=== PATIENT | female | born 1995 | race African-American/Black ===

== ENCOUNTER 2021-03-30 13:52 | Inpatient (IN) | payer MEDICAID, OTHER ==
[~2021-03-30] VITALS: Ht 160 cm; Wt 58.7 kg
[2021-03-30 17:14] LABS: ANION GAP 9 mmol/L (8-16); BASOPHILS % (AUTO) 0.4 % (0.0-2.0); CALCIUM, TOTAL 8.9 mg/dL (8.8-10.5); CARBON DIOXIDE 26 mmol/L (22-29); CHLORIDE 105 mmol/L (98-107); CREATININE 0.72 mg/dL (0.60-1.30); EOSINOPHILS % (AUTO) 0.6 % (1.0-6.0); GLOMERULAR FILTR. RATE CALC > 60 mL/min (>60); GLUCOSE,RANDOM 87 mg/dL (70-110); HEMATOCRIT 42.1 % (36-46); HEMOGLOBIN 14.4 g/dL (12.0-16.0); LYMPHOCYTES # (AUTO) 2.3 K/uL (1.0-4.8); LYMPHOCYTES % (AUTO) 27.1 % (22.0-44.0); MEAN CORPUSCULAR HEMOGLOBIN 30.4 pg (26.0-34.0); MEAN CORPUSCULAR HGB CONC 34.1 G/dL (31.0-37.0); MEAN CORPUSCULAR VOLUME 89 fL (80-100); MONOCYTES # (AUTO) 0.5 K/uL (0.1-1.0); MONOCYTES % (AUTO) 5.6 % (2.0-9.0); NEUTROPHILS # (AUTO) 5.6 K/uL (1.8-7.7); NEUTROPHILS % (AUTO) 66.3 % (40.0-70.0); PLATELET COUNT (AUTO) 167 K/uL (150-450); POTASSIUM 3.7 mmol/L (3.5-5.1); RED BLOOD CELL COUNT(AUTO) 4.73 MIL/uL (4.00-5.20); SODIUM SERUM 140 mmol/L (136-145); UREA NITROGEN, BLOOD 10 mg/dL (7-18)
[2021-03-30 17:30] LABS: ALANINE AMINOTRANSFERASE 14 U/L (12-78); ALBUMIN 4.1 g/dL (3.4-5.0); ALKALINE PHOSPHATASE 45 U/L (46-116); ASPARTATE AMINOTRANSFERASE 15 U/L (15-37); HCG,QUANTITATIVE < 1 mIU/mL (0-6)
[2021-03-30 18:36] LABS: COVID AG,FIA SOURCE NASOPHARYNGEAL
[2021-03-30] MEDS ORDERED: ZOLPIDEM TARTRATE 10 MG TABLET PO PRN ×2 (19:00→23:45)
[2021-03-30] MEDS ORDERED: LORazepam 2 MG TABLET PO PRN ×2 (19:00→23:45)
[2021-03-30] MEDS ORDERED: OLANZapine 5 MG RAPDIS TABLET PO PRN ×2 (19:00→23:45)
[2021-03-31] MEDS ORDERED: INFLUENZA VIRUS VACCINE QVS 2021-22 (6MO+)/PF 60 MCG/0.5 ML SYRINGE IM. ONE (01:45)
[2021-03-31 02:47] VITALS: BP 105/65
[2021-03-31 08:21] VITALS: BP 119/74
[2021-03-31 16:24] VITALS: BP 109/79
[2021-04-01 00:50] VITALS: BP 126/74
[2021-04-01 08:28] VITALS: BP 111/66
[2021-04-01] MEDS ORDERED: PROMETHAZINE HCL 25 MG TABLET PO PRN (15:45)
[2021-04-01] MEDS ORDERED: GuaiFENesin/D-METHORPHAN [SUGAR-FREE] 200-20MG/10 ML SYRUP UDCUP PO PRN (15:45)
[2021-04-01] MEDS ORDERED: TUBERCULIN, PURIFIED PROTEIN DERIVATIVE 5 TU/0.1 ML SYRINGE ID ONE (15:45)
[2021-04-01] MEDS ORDERED: HydrOXYzine PAMOATE 50 MG CAPSULE PO PRN (15:45)
[2021-04-01] MEDS ORDERED: MAG HYDROX/AL HYDROX/SIMETH ES 30 ML SUSPENSION UDCUP PO PRN (15:45)
[2021-04-01] MEDS ORDERED: ACETAMINOPHEN 325 MG TABLET PO PRN (15:45)
[2021-04-01] MEDS ORDERED: LOPERAMIDE HCL 2 MG CAPSULE PO PRN (15:45)
[2021-04-01] MEDS ORDERED: MAGNESIUM HYDROXIDE SUSPENSION 30 ML UDCUP PO PRN (15:45)
[2021-04-01] MEDS ORDERED: PROZ20 PO (15:54)
[2021-04-01] MEDS ORDERED: MELA5TAB40 PO (15:54)
[2021-04-01] MEDS ORDERED: OMEG-135 PO (15:54)
[2021-04-01 16:24] VITALS: BP 100/66
[2021-04-01] MEDS: THIAMINE 100 MG TABLET PO SCH (17:04)
[2021-04-01] MEDS ORDERED: MELATONIN 5 MG TABLET PO SCH (21:00)
[2021-04-02 00:45] VITALS: BP 102/67
[2021-04-02 07:36] LABS: HEMOGLOBIN A1C 5.7 % (3.8-5.6)
[2021-04-02 07:50] LABS: CHOL/HDL RATIO 3.4 (3.9-5.7); FREE T4 (FREE THYROXINE) 1.12 ng/dL (0.76-1.46); THYROID STIMULATING HORMONE 1.52 uIU/mL (0.36-3.74)
[2021-04-02 08:40] VITALS: BP 105/65
[2021-04-02] MEDS ORDERED: FOLIC ACID 1 MG TABLET PO SCH (09:00)
[2021-04-02] MEDS ORDERED: FLUoxetine HCL 20 MG CAPSULE PO SCH (09:00)
[2021-04-02] MEDS ORDERED: OMEGA-3/DHA/EPA/FISH OIL 1,000 MG CAPSULE PO SCH (09:00)
[2021-04-02] MEDS ORDERED: MULTIVITAMINS WITH MINERALS, THERAPEUTIC TABLET PO SCH (09:00)
[2021-04-02] MEDS: THIAMINE 100 MG TABLET PO SCH (09:19)
== END 2021-04-02 10:45 | disposition home or self-care (01) | DRG 754 ==
LOC: EMS 13:57 → B2S 20:00 → EMS 23:40
PROVIDERS: ADMIT Psychiatry & Neurology Psychiatry; ATTEND Psychiatry & Neurology Psychiatry
DX: F32.9 Major depressive disorder, single episode, unspecified (principal); Z91.14 Patient's other noncompliance with medication regimen; Z20.822 Contact with and (suspected) exposure to COVID-19; Z55.9 Problems related to education and literacy, unspecified; Z59.9 Problem related to housing and economic circumstances, unspecified; Z63.9 Problem related to primary support group, unspecified; Z65.3 Problems related to other legal circumstances
CPT/HCPCS: 80053; 80061; 83036; 84439; 84443; 84702; 85025; 86592; 99285; G0480; Q9967

== ENCOUNTER 2021-12-14 10:55 | Emergency (ER) | payer MEDICAID, OTHER ==
[~2021-12-14] VITALS: Ht 160 cm; Wt 56.8 kg
[~2021-12-14 10:55] MED LIST: MELA5TAB40 PO; OMEG-135 PO; PROZ20 PO
[2021-12-14] MEDS ORDERED: DOXY-354 PO ×2 (14:33→15:04)
[2021-12-14] MEDS ORDERED: CefTRIAXone SODIUM 1 GM/VIAL IM ONE (14:45)
[2021-12-14] MEDS ORDERED: LIDOCAINE/PF 1% 2 ML VIAL IM ONE (14:45)
[2021-12-14 15:07] VITALS: BP 105/76
== END 2021-12-14 15:08 | disposition home or self-care (01) ==
LOC: EMS 10:55
DX: Z20.2 Contact with and (suspected) exposure to infections with a predominantly sexual mode of transmission (principal); F12.90 Cannabis use, unspecified, uncomplicated
CPT/HCPCS: 99283; 81025; 96372; J0696; J3490

== ENCOUNTER 2022-01-04 09:02 | Emergency (ER) | payer OTHER ==
[~2022-01-04] VITALS: Ht 165.1 cm; Wt 88.6 kg
[~2022-01-04 09:02] MED LIST changes: +DOXY-354 PO; -MELA5TAB40 PO; -OMEG-135 PO; -PROZ20 PO
[2022-01-04 12:05] VITALS: BP 122/68
[2022-01-04 13:12] LABS: APPEARANCE,URINE HAZY (CLEAR); BILIRUBIN,URINE NEGATIVE (NEGATIVE); GLUCOSE, URINE (UA) NEGATIVE (NEGATIVE); KETONES,URINE 40-60 mg/dL (NEGATIVE); LEUKOCYTE ESTERASE ,URINE MODERATE (NEGATIVE); NITRATE,URINE NEGATIVE (NEGATIVE); OCCULT BLOOD,URINE NEGATIVE (NEGATIVE); PH,URINE 6.5 (5.0-8.0); PROTEIN,URINE TRACE mg/dL (NEGATIVE); SPECIFIC GRAVITIY, URINE 1.025 (1.003-1.030)
[2022-01-04 13:16] LABS: BACTERIA,URINE Moderate /HPF (None Seen); RBC,URINE 0-2 /HPF (0-2)
[2022-01-04 13:17] LABS: SQUAMOUS EPITHELIAL CELL,UR Moderate /LPF (None Seen)
[2022-01-04] MEDS ORDERED: CefTRIAXone SODIUM 1 GM/VIAL IM ONE (13:30)
[2022-01-04] MEDS ORDERED: LIDOCAINE/PF 1% 2 ML VIAL IM ONE (13:30)
== END 2022-01-04 14:01 | disposition home or self-care (01) ==
LOC: EMS 09:02
DX: N34.2 Other urethritis (principal); F41.9 Anxiety disorder, unspecified; F32.A Depression, unspecified; F12.90 Cannabis use, unspecified, uncomplicated
CPT/HCPCS: 99283; 81001; 87086; 87186; 87491; 87591; 81025; 96372; J0696; J3490